=== PATIENT | male | born 1970 | race Two or more races ===

== ENCOUNTER 2022-08-29 12:12 | Outpatient (CLI) | payer OTHER | END 2022-08-29 12:30 | disposition home or self-care (01) | LOC: RAD 12:12 | PROVIDERS: ATTEND Orthopaedic Surgery | DX: M17.12 Unilateral primary osteoarthritis, left knee (principal) ==

== ENCOUNTER 2022-12-12 13:33 | Outpatient (CLI) | payer OTHER | END 2022-12-12 13:47 | disposition home or self-care (01) | LOC: SONOGRAMA 13:33 | PROVIDERS: ATTEND General Practice | DX: R30.0 Dysuria (principal); R31.9 Hematuria, unspecified ==

== ENCOUNTER 2023-08-29 10:30 | Inpatient (IN) | payer OTHER ==
[~2023-08-29] VITALS: Ht 172.7 cm; Wt 95.3 kg
[2023-08-29] MEDS ORDERED: IRBESARTAN150 MG PO (13:53)
[2023-08-29] MEDS ORDERED: MONTELUKAST SOD10 MG PO (13:54)
[2023-08-29] MEDS ORDERED: DULOXETINE HCL30 MG PO (13:54)
[2023-09-02] MEDS ORDERED: MEDROLPACK PO (10:00)
[2023-09-02] MEDS ORDERED: AMOX-CLAV 875-1 EACH PO (10:00)
[2023-09-02] MEDS ORDERED: NEURONTIN800 MG PO (10:00)
[2023-09-02] MEDS ORDERED: PERCOCET 5-3251 EACH PO (10:00)
[2023-09-02] MEDS ORDERED: COLACE100 MG PO (10:01)
[2023-09-02] MEDS ORDERED: GABAPENTIN100 M2 PO (10:01)
[2023-09-03 07:07] LABS: HEMATOCRIT 39.6 % (39.0-48.0); HEMOGLOBIN 13.4 g/dL (13-16.00); MEAN CORPUSCULAR HEMOGLOBIN 29.1 pg (27.00-32.0); MEAN CORPUSCULAR HGB CONC 33.8 g/dl (32.0-36.0); PLATELET COUNT 275 K/uL (150-450); RED BLOOD COUNT 4.61 M/uL (4.00-6.00); RED CELL DISTRIBUTION WIDTH 13.1 % (11.5-14.5)
[2023-09-03 07:12] LABS: CALCIUM 8.2 mg/dL (8.5-10.1); CREATININE SERUM 0.83 mg/dL (0.70-1.30); GFR 97.67; POTASSIUM 4.31 mEq/L (3.5-5.1)
== END 2023-09-04 18:23 | DRG 455 ==
LOC: O/R 09-02 06:01 → SURH 09-02 06:01 → SURG 09-02 08:15 → SURH 09-02 15:13
PROVIDERS: ADMIT Orthopaedic Surgery Orthopaedic Surgery of the Spine; ATTEND Orthopaedic Surgery Orthopaedic Surgery of the Spine
PROC: 0SG0071 Fusion of Lumbar Vertebral Joint with Autologous Tissue Substitute, Posterior Approach, Posterior Column, Open Approach (ICD-10-PCS; 2023-09-02)
PROC: 0ST20ZZ Resection of Lumbar Vertebral Disc, Open Approach (ICD-10-PCS; 2023-09-02)
PROC: XRGD0R7 Fusion of Lumbosacral Joint using Custom-Made Anatomically Designed Interbody Fusion Device, Open Approach, New Technology Group 7 (ICD-10-PCS; 2023-09-02)
PROC: 0SG3071 Fusion of Lumbosacral Joint with Autologous Tissue Substitute, Posterior Approach, Posterior Column, Open Approach (ICD-10-PCS; 2023-09-02)
PROC: 0QB30ZZ Excision of Left Pelvic Bone, Open Approach (ICD-10-PCS; 2023-09-02)
PROC: 07DR0ZZ Extraction of Iliac Bone Marrow, Open Approach (ICD-10-PCS; 2023-09-02)
PROC: 4A1104G Monitoring of Peripheral Nervous Electrical Activity, Intraoperative, Open Approach (ICD-10-PCS; 2023-09-02)
PROC: XRGB0R7 Fusion of Lumbar Vertebral Joint using Custom-Made Anatomically Designed Interbody Fusion Device, Open Approach, New Technology Group 7 (ICD-10-PCS; principal; 2023-09-02 08:15)
DX: M43.17 Spondylolisthesis, lumbosacral region (principal); M48.062 Spinal stenosis, lumbar region with neurogenic claudication; M51.36 Other intervertebral disc degeneration, lumbar region; M48.07 Spinal stenosis, lumbosacral region; I10 Essential (primary) hypertension; G47.33 Obstructive sleep apnea (adult) (pediatric)